=== PATIENT | male | born 1995 | race Caucasian/White ===

== ENCOUNTER 2019-03-12 22:35 | Inpatient (IN) | payer OTHER ==
--- NOTE | 2019-03-12 23:02 | ED ---
Psychiatric Complaint - HPI Summary HPI Summary: The patient is a 23 y/o M presenting to [facility] brought in by [facility] police with a chief complaint of possible bipolar disorder aggravation tonight. Police report that the patient had been sitting in his room looking at the mirror and was aggravated by surrounding noises in nearby rooms; he states, Theres not a lot to look I feel self-contained spending a lot of time in my room. He denies any SI, HI, or auditory or visual hallucinations, although police report that the nurse the patient spoke with said that when proved if he was suicidal, he stated, I guess... maybe. He has not been taking his Valproic acid for bipolar disorder for the last few days as he notes maybe I wasnt listening to myself, Im accepting things as they go. No other PMHx. Current some day smoker, no EtOH, no substance use. Medications and allergies reviewed. - History Of Current Complaint Chief Complaint: EDMentalHealth Time Seen by Provider: 03/12/19 22:49 Hx Obtained From: Patient, Other: - [facility] Police Onset/Duration: Still Present Timing: Constant Severity Initially: Moderate Severity Currently: Moderate Aggravating Factor(s): Medication Non-compliance - not taking Valproic acid Associated Signs And Symptoms: Positive: Social Isolation. Negative: Hallucinating Related History: Positive For: Prior Psychiatric Issues - bipolar disorder Has Suicidal: Denies: Thoughts Has Homicidal: Denies: Thoughts - Allergies/Home Medications Allergies/Adverse Reactions: Allergies Allergy/AdvReac Type Severity Reaction Status Date / Time No Known Allergies Allergy Verified 03/12/19 22:40 Home Medications: Home Medications Divalproex TAB(*) [Depakote (*)] 1,000 mg PO BID 03/12/19 [History Confirmed 03/12/19] PMH/Surg Hx/FS Hx/Imm Hx Endocrine/Hematology History: Denies: Hx Diabetes Respiratory History: Denies: Hx Asthma Psychiatric History: Reports: Hx Bipolar Disorder - Surgical History Surgical History: None Surgery Procedure, Year, and Place: none Infectious Disease History: No Infectious Disease History: Denies: Traveled Outside the [place] in Last 30 Days - Family History Known Family History: Negative: Renal Disease - Social History Alcohol Use: None Hx Substance Use: No Substance Use Type: Reports: None Hx Tobacco Use: Yes Smoking Status (MU): Current Some Day Smoker Review of Systems Positive: Other - Negative: visual hallucinations Positive: Other - Negative: auditory hallucinations Psychological: Other - Negative: SI, HI All Other Systems Reviewed And Are Negative: Yes Physical Exam - Summary Physical Exam Summary: Appearance: Well-appearing, Well-nourished, lying in bed comfortable Skin: Warm, dry, no obvious rash Eyes: sclera anicteric, no conjunctival pallor ENT: mucous membranes moist Neck: deferred Respiratory: No signs of respiratory distress Cardiovascular: Appears well perfused, pulses are nml Abdomen: deferred Musculoskeletal: Moving all 4 extremities without obvious discomfort Neurological: Awake and alert, mentation is normal, speech is fluent and appropriate Psychiatric: affect is non-depressed, responses to questions are quite delayed but appropriate Triage Information Reviewed: Yes Vital Signs On Initial Exam: Initial Vitals Temp Pulse Resp BP Pulse Ox 98.0 F 79 16 155/99 98 03/12/19 22:36 03/12/19 22:36 03/12/19 22:36 03/12/19 22:36 03/12/19 22:36 Vital Signs Reviewed: Yes Diagnostics - Vital Signs Vital Signs Temp Pulse Resp BP Pulse Ox 03/12/19 22:36 98.0 F 79 16 155/99 98 - Laboratory Result Diagrams: 03/12/19 23:05 03/12/19 23:05 Lab Statement: Any lab studies that have been ordered have been reviewed, and results considered in the medical decision making process. Re-Evaluation - Re-Evaluation First Eval Re-Evaluation Time: 22:55 Comment: Patient is medically cleared for MHE. Course/Dx - Course Course Of Treatment: Patient is a 23 y/o M brought in by [facility] police with cc of concern for medication non-compliance of Valproic acid for bipolar disorder with associated symptoms of social isolation but without any auditory or visual hallucinations. Upon physical exam, the patient exhibits a non-depressed affect and responds to questions in a delayed yet appropriate manner. Toxicology report reveals Valproic acid of 15.0. In the ED course, the patient was administered Ativan. He is cleared for MHE at 2255. At 0150, Clyde Richardson, mental health carton stenciler, reports that Dr. Dykes, psychiatry, has decided to involuntarily admit the patient on an emergent basis with dx of unspecified psychosis. - Differential Dx/Clinical Impression Provider Diagnosis: Unspecified psychosis - Physician Notifications Discussed Care Of Patient With: Clyde Richardson - mental health carton stenciler Time Discussed With Above Provider: 01:50 Instructed by Provider To: Other - Clyde reports that Dr. Dykes, psychiatry, is involuntarily admitting the patient on an emergent basis with dx of unspecified psychosis. Discharge ED - Sign-Out/Discharge Documenting (check all that apply): Patient Departure - Patient involuntarily admitted by Dr. Dykes. Patient Received Moderate/Deep Sedation with Procedure: No - Discharge Plan Condition: Stable Disposition: PSYCHIATRIC FACILITY-[facility] - Billing Disposition and Condition Condition: STABLE Disposition: Psychiatric Facility [facility] - Attestation Statements Document Initiated by Scribe: Yes Documenting Scribe: Yara Hinson Provider For Whom Celi is Documenting (Include Credential): Dr. Judah Loredo MD Scribe Attestation: Yara Quinn scribed for Dr. Judah Loredo MD on 03/13/19 at 0543. Scribe Documentation Reviewed: Yes Provider Attestation: The documentation as recorded by the Yara segura accurately reflects the service I personally performed and the decisions made by me, Dr. Judah Loredo MD Status of Scribe Document: Viewed
[2019-03-12] MEDS ORDERED: LORazepam TAB(*) 1 MG PO ONE (23:19)
[2019-03-12 23:26] LABS: ABS Lymphocytes 2.3 10^3/ul (1.0-4.8); ABS Monocytes 0.6 10^3/ul (0-0.8); ABS Neutrophils 5.1 10^3/ul (1.5-7.7); Eosinophil % 0.2 %; Hematocrit 44 % (42-52); Hemoglobin 14.9 g/dL (14.0-18.0); Lymphocyte % 28.3 %; Mean Corpuscular HGB Conc 34 g/dL (31-36); Mean Corpuscular Hemoglobin 32 pg (27-31); Mean Corpuscular Volume 94 fL (80-94); Mean Platelet Volume 7.8 fL (7.4-10.4); Nucleated Red Blood Cells % 0.1; Platelet Count 315 10^3/uL (150-450); Red Blood Count 4.64 10^6 /uL (4.18-5.48); Red Cell Distribution Width 12 % (10-15); White Blood Count 8.1 10^3/uL (3.5-10.8)
[2019-03-12 23:42] LABS: ALT 13 U/L (7-52); AST 17 U/L (13-39); Albumin 5.1 g/dL (3.2-5.2); Alkaline Phosphatase 50 U/L (34-104); Anion Gap 10 mmol/L (2-11); BUN/Creatinine Ratio 24.2 (8-20); Blood Urea Nitrogen 23 mg/dL (6-24); CO2 Carbon Dioxide 23 mmol/L (22-32); Calcium 9.8 mg/dL (8.6-10.3); Chloride 104 mmol/L (101-111); EGFR African American 118.9 (>60); EGFR Non-African American 98.2 (>60); Globulin 2.6 g/dL (2-4); Glucose 83 mg/dL (70-100); Potassium 3.7 mmol/L (3.5-5.0); Sodium 137 mmol/L (135-145); Total Protein 7.7 g/dL (6.4-8.9)
[2019-03-12 23:59] LABS: Acetaminophen < 15 mcg/mL; Alcohol < 10 mg/dL (<10); Salicylate < 2.50 mg/dL (<30)
[2019-03-13 00:14] LABS: TSH (Thyroid Stimulating Horm) 2.12 mcIU/mL (0.34-5.60)
[2019-03-13] MEDS ORDERED: Al Hydrox/Mg Hydrox/Simet LIQ* 30 ML UDC PO PRN (02:12)
[2019-03-13] MEDS ORDERED: Acetaminophen TAB* 325 MG PO PRN (02:12)
[2019-03-13] MEDS: Multivitamins/Minerals TAB PO SCH (11:02)
[2019-03-13] MEDS ORDERED: LORazepam TAB(*) 1 MG ONE (13:13)
[2019-03-13] MEDS: LORazepam TAB(*) 1 MG PO SCH (17:40)
--- NOTE | 2019-03-13 22:24 | HP ---
HISTORY AND PHYSICAL: DATE OF ADMISSION: IDENTIFYING DATA: Mati is a 23-year-old single male, a senior at , was brought to the emergency room by campus police for confusional state and telling the police that he was being annoye d by the surrounding. CHIEF COMPLAINT: "Confusion and inability to express self." HISTORY OF PRESENT ILLNESS: Mati is an unreliable and poor historian. During the interview today, he starts a sentence and then stops and stares at or stares away and do not respond to further quest ions or even if he does sometimes inappropriately. However, he was able to report that he has not be en taking his Depakote but did not know for how long and he was feeling weird for which he called the campus police for help. With direct questioning about signs and symptoms, he was not able to answer yes or no, just stares. However, at that point his mother showed up and was able to provide some me aningful history, although she says she does not know much about his mental health problem. She repo rted that Mati was diagnosed to have bipolar disorder and was prescribed Depakote. She also report s that he may have 2 hospitalizations, 1 overseas in [facility], the other in the [facility] with almost identical presentation. However, other than significant muteness and inability to verba lize his thoughts and feelings, he did not show any manic or hypomanic symptoms. He denies experienc ing any hallucinations or delusions. He also denies taking any illicit substances or drinking. He d enies experiencing thoughts of harming self or others. Reportedly, he did not sleep for an unknown n umber of days including last night and he ate approximately 20% of the meals since he was on the unit . He stands at a corner and appears to be internally occupied. His mother reports that he may have been under a lot of stress at the school, although his grades are very good, possibly 4 point GPA. PAST PSYCHIATRIC HISTORY: Reportedly at least a couple of hospitalizations. He has a psychiatrist u nknown to anybody at this point, who prescribes him Depakote. PAST MEDICAL HISTORY: Unremarkable. ALLERGIES: No known drug allergies. FAMILY PSYCHIATRIC HISTORY: It is remarkable for his mother having bipolar disorder diagnosis and st able on Depakote and Wellbutrin, reported by herself. PERSONAL AND SOCIAL HISTORY: Mati is a senior at [employer] with good grades. He is from [facility]. Nothing more is known about his personal and social history. PHYSICAL EXAMINATION Physical exam was offered. At first, he was uncomfortable, but later allowed some exam. As marley britt earlier, he does not appear to be in any physical distress other than holding his abdomen and sayin g that he was having some cramps. GENERAL: He is not in any physical distress at this time. VITAL SIGNS: Show a blood pressure of 155/99, pulse 79, respirations 16, pulse ox 98% on room air. HEENT: Examination of head was unremarkable. Head was atraumatic, normocephalic. Eyes, PERRLA, EOMI x2, clear sclerae bilaterally. ENT: Moist oral cavity, good dentition with poor hygiene. NECK: Supple with midline trachea. No lymphadenopathy, thyromegaly, or other abnormalities. LUNGS: Clear with good air entry bilaterally. No wheezing or crepitation. CARDIOVASCULAR: Within normal limits with S1 and S2 only. No murmurs or gallops appreciated. ABDOMEN: Complaining of some tenderness in mid abdomen and epigastric area, otherwise unremarkable. MUSCULOSKELETAL: Within normal limits. NEUROLOGICAL: Unremarkable with cranial nerves II through XII grossly intact. No sensory deficits a ppreciated. MENTAL STATUS EXAMINATION: He is alert, but disoriented to time, place, and person, has intense sta ring. Speech is mostly mute and limited, unable to say how his mood is; however, observed affect tray ears to be anxious. Thought process is unable to assess at this time. Thought content also difficul t to assess; however, he denies any delusions or paranoia. Also, denies any perceptional disturbance s at this time. Unable to assess his intelligence but evidently it is average because of his educati onal background and grade point average in his senior class. Memory function is probably intact, but at this time, difficult to assess. His insight and judgment are both impaired. LABORATORY DATA: Lab reviewed was unremarkable with a WBC count of 8.1, hemoglobin 14.9, hematocrit 44, platelets 315. Sodium 137, potassium 3.7, chloride 104, carbon dioxide 23, BUN 23, creatinine 0. 95. Urinalysis and urine drug screen were unremarkable. SUMMARY: This 23-year-old [employer] senior, with a prior history of treatments and at least 2 p sychiatric hospitalizations, appears to be in a state of catatonia at this time. DIAGNOSTIC IMPRESSION: Bipolar I disorder with catatonia. PHYSICAL HEALTH DIAGNOSIS: None. TREATMENT RECOMMENDATIONS: Mati will remain hospitalized on behavioral science unit for his safety and rapid stabilization of catatonia. His code status will remain full. Supportive milieu, individ ual, and group therapy will be initiated. I have discussed the treatment plan with his mother in Louis stuart's presence. Both appear to understand and agree to the plan. For now, I will prescribe lorazepam 1 mg 3 times a day, 30 minutes prior to meal preferably and monitoring him for next 48 hours to see how things go and then eventually probably start him back on his Depakote. [id number]/[facility] #: [id number]
[2019-03-14] MEDS: LORazepam TAB(*) 1 MG PO SCH ×3 (07:59→17:00)
[2019-03-14] MEDS: Multivitamins/Minerals TAB PO SCH (08:04)
[2019-03-14 08:30] LABS: HDL Cholesterol 50.6 mg/dL
[2019-03-15] MEDS: LORazepam TAB(*) 1 MG PO SCH ×4 (07:54→18:10)
[2019-03-15] MEDS: Multivitamins/Minerals TAB PO SCH (08:13)
[2019-03-15] MEDS: Divalproex DR TAB(*) 500 MG PO SCH ×3 (13:05→21:37)
--- NOTE | 2019-03-15 16:52 | PN ---
Subjective - Subjective Date of Service: 03/15/19 Service Type: 61708 Hosp care 25 min moderate complexity Subjective: Met with Mati and his mother multiple times to discuss his treatment options. Today received a call from his psychiatrist at [facility] who reports that Mati was on zyprexa for psychosis. However, he is catatonic in presentation for which Lorazepam was prescribed. He has shown minimal improvement so far. Was also started on Depakote today. During today's assessment Mati reported that he heard voices in the past. Denies experiencing hallucinations or delusions now. Objective - General Observations Appearance: Disheveled Appears Stated Age: Yes Stature: WNL Posture: WNL Eye Contact: Intense Behavior/Activity: Slowed - Interaction Observations Attitude Towards Examiner: Cooperative Attitude Towards Parent/Guardian: Positive Interaction Stated Mood: Dysphoric Affect: Blunted Speech Pattern/Tone: Delayed, Quiet Volume Thought Process: Incoherent, Impoverished Perception: WNL Thought Content: Depressive Hallucination Type: Denies Delusion Type: Denies - Cognitive Function Orientation: Person, Situation Level of Consciousness: Awake, Alert Cognition: Impaired Cognition Estimated Intelligence: Normal Judgment Within Normal Limits: No Ability to Make Reasonable Decisions: Moderately Impaired - Medication Compliance Cooperative with Inpatient Medication Regimen: Yes - Group Participation Participates in Group Activities: No Assessment - Assessment Merits Inpatient Hospitalization: For Immediate Safety, For Stabilization Clinical Impression: Catatonic. Plan - Plan Treatment Plan: Name: MATI JORGENSEN Birthdate: 1995 [id number] Continued Medication Management: Start Medication Medications: Current Medications Acetaminophen (Tylenol Tab*) 650 mg PO Q4H PRN PRN Reason: PAIN; OR TEMP > 101 Al Hydrox/Mg Hydrox/Simethicone (Maalox Plus*) 30 ml PO Q4H PRN PRN Reason: INDIGESTION Divalproex Sodium (Depakote Dr Tab(*)) 500 mg PO BID [facility] Last Admin: 03/15/19 13:05 Dose: 500 mg Lorazepam (Ativan Tab(*)) 2 mg PO TID AC [facility] Last Admin: 03/15/19 13:05 Dose: 2 mg Multivitamins/Minerals (Theragran/Minerals Tab*) 1 tab PO DAILY [facility] Last Admin: 03/15/19 08:13 Dose: 1 tab - Discharge Plan Discharge Plan: Outpatient Follow Up Outpatient Program: TBD
[2019-03-16] MEDS: LORazepam TAB(*) 1 MG PO SCH ×3 (10:48→17:43)
[2019-03-16] MEDS: Multivitamins/Minerals TAB PO SCH (10:48)
[2019-03-16] MEDS: Divalproex DR TAB(*) 500 MG PO SCH ×2 (10:48→21:41)
--- NOTE | 2019-03-16 10:50 | PN ---
Subjective - Subjective Date of Service: 03/16/19 Service Type: 68532 Hosp care 35 min high complexity Subjective: Nursing Report: Patient was visible on unit, no behavioral incidents. CC: "I dont know Patient was seen and evaluated in the common room. The patient seems confused and vague when answering questions. He verbalized that he is okay with taking a medical leave of absence from school. His mother visited him today. According to his outpatient psychiatrist he was at a [employer] retreat and started to de- compensate. Objective - General Observations Appearance: Disheveled Appears Stated Age: Yes Stature: Thin Posture: Slumped Eye Contact: Avoidant Behavior/Activity: WNL - Interaction Observations Attitude Towards Examiner: Cooperative Stated Mood: Dysphoric Speech Pattern/Tone: Delayed Thought Process: Loose Associations Perception: Depersonalization Thought Content: Self-Deprecatory Hallucination Type: None - Cognitive Function Orientation: A&O x 4 Level of Consciousness: Awake Ability to Make Reasonable Decisions: Serverely Impaired - Medication Compliance Cooperative with Inpatient Medication Regimen: Yes - Group Participation Participates in Group Activities: Partial Assessment - Assessment Merits Inpatient Hospitalization: For Immediate Safety Clinical Impression: 23 year old male with history of Bipolar I disorder came to the hospital with signs of catatonia and psychosis and was admitted to the B[facility] at [facility]. Plan - Plan Treatment Plan: Name: DORIS JORGENSNE Birthdate: 1995 [id number] #Q15 minute observation. # The patient requires psychiatric inpatient admission at this time to assure safety, receive treatment and work toward stabilization. # Patient shows signs of catatonia and psychosis # Obtained collateral information from Dr. Munson his treating psychiatrist [phone] # Collaboration with Strategic Partner Development Manager Quin Paz # Continue Ativan 2mg TID for catatonia # Resume zyprexa 10mg qhs and monitor for response to catatonia # Continue depakote 500mg BID # Depakote level 15 #Goals before discharge include: Psychiatric stabilization Tentative Discharge: Pending psychiatric stabilization Sodium 137 mmol/L (135-145) 03/12/19 23:05 Potassium 3.7 mmol/L (3.5-5.0) 03/12/19 23:05 BUN 23 mg/dL (6-24) 03/12/19 23:05 Creatinine 0.95 mg/dL (0.67-1.17) 03/12/19 23:05 Hemoglobin A1c 4.8 % (4.0-5.6) 03/14/19 08:00 Calcium 9.8 mg/dL (8.6-10.3) 03/12/19 23:05 AST 17 U/L (13-39) 03/12/19 23:05 ALT 13 U/L (7-52) 03/12/19 23:05 Triglycerides 59 mg/dL 03/14/19 08:00 Cholesterol 126 mg/dL 03/14/19 08:00 LDL Cholesterol 64 mg/dL 03/14/19 08:00 Continued Medication Management: Continue Outpt Medication Medications: Current Medications Acetaminophen (Tylenol Tab*) 650 mg PO Q4H PRN PRN Reason: PAIN; OR TEMP > 101 Al Hydrox/Mg Hydrox/Simethicone (Maalox Plus*) 30 ml PO Q4H PRN PRN Reason: INDIGESTION Divalproex Sodium (Depakote Dr Tab(*)) 500 mg PO BID [facility] Last Admin: 03/16/19 10:48 Dose: 500 mg Lorazepam (Ativan Tab(*)) 2 mg PO TID AC [facility] Last Admin: 03/16/19 10:48 Dose: 2 mg Multivitamins/Minerals (Theragran/Minerals Tab*) 1 tab PO DAILY [facility] Last Admin: 03/16/19 10:48 Dose: Not Given - Discharge Plan Discharge Plan: Inpatient Hospitalization
[2019-03-16] MEDS ORDERED: OLANzapine TAB* 10 MG PO SCH (21:00)
--- NOTE | 2019-03-17 10:38 | PN ---
Subjective - Subjective Date of Service: 03/17/19 Service Type: 69152 Hosp care 35 min high complexity Subjective: Nursing Report: Patient was visible on unit, no behavioral incidents. Refused medications. CC: "I dont know" Patient was seen and evaluated in the common room. The patient reported that no one offered him medications. When asked questions he responds saying " maybe ". Patient ate his meals. Per nursing no behavioral issues or overnight events reported. Objective - General Observations Appearance: Disheveled Appears Stated Age: Yes Stature: Thin Posture: Slumped Eye Contact: Avoidant Behavior/Activity: Slowed - Interaction Observations Attitude Towards Examiner: Confused Stated Mood: Dysphoric Affect: Flat Speech Pattern/Tone: Delayed Thought Process: Impoverished Perception: Derealization Thought Content: Depressive Hallucination Type: Auditory Delusion Type: Thought Withdrawal - Cognitive Function Orientation: A&O x 4 Level of Consciousness: Awake Judgment Within Normal Limits: No Ability to Make Reasonable Decisions: Serverely Impaired - Medication Compliance Cooperative with Inpatient Medication Regimen: Partial - Group Participation Participates in Group Activities: No Assessment - Assessment Merits Inpatient Hospitalization: For Immediate Safety Clinical Impression: 23 year old male with history of Bipolar I disorder came to the hospital with signs of catatonia and psychosis and was admitted to the BSU at [facility]. Plan - Plan Treatment Plan: Name: DORIS JORGENSEN Birthdate: 1995 [id number] #Q15 minute observation. # The patient requires psychiatric inpatient admission at this time to assure safety, receive treatment and work toward stabilization. # Patient shows signs of catatonia and psychosis # Obtained collateral information from Dr. Munson his treating psychiatrist [phone] # Collaboration with Health And Safety Trainer Quin Paz # Continue Ativan 2mg TID for catatonia # Meeting with mother today. Once patient is stabilized the patient will return with her and enroll in intensive outpatient program. # Medical leave paperwork completed. # Seroquel 200mg @1900 and plan to monitor for response to catatonia # Mother plans to encourge patient to take medication during visiting hours # Depakote 1000mg @ 1900 # Depakote level 15 on admisison #Goals before discharge include: Psychiatric stabilization Tentative Discharge: Pending psychiatric stabilization Sodium 137 mmol/L (135-145) 03/12/19 23:05 Potassium 3.7 mmol/L (3.5-5.0) 03/12/19 23:05 BUN 23 mg/dL (6-24) 03/12/19 23:05 Creatinine 0.95 mg/dL (0.67-1.17) 03/12/19 23:05 Hemoglobin A1c 4.8 % (4.0-5.6) 03/14/19 08:00 Calcium 9.8 mg/dL (8.6-10.3) 03/12/19 23:05 AST 17 U/L (13-39) 03/12/19 23:05 ALT 13 U/L (7-52) 03/12/19 23:05 Triglycerides 59 mg/dL 03/14/19 08:00 Cholesterol 126 mg/dL 03/14/19 08:00 LDL Cholesterol 64 mg/dL 03/14/19 08:00 Continued Medication Management: Continue Outpt Medication Medications: Current Medications Acetaminophen (Tylenol Tab*) 650 mg PO Q4H PRN PRN Reason: PAIN; OR TEMP > 101 Al Hydrox/Mg Hydrox/Simethicone (Maalox Plus*) 30 ml PO Q4H PRN PRN Reason: INDIGESTION Divalproex Sodium (Depakote Dr Tab(*)) 500 mg PO BID [facility] Last Admin: 03/16/19 21:41 Dose: Not Given Lorazepam (Ativan Tab(*)) 2 mg PO TID [facility] Last Admin: 03/16/19 17:43 Dose: 2 mg Multivitamins/Minerals (Theragran/Minerals Tab*) 1 tab PO DAILY [facility] Last Admin: 03/16/19 10:48 Dose: Not Given Olanzapine (Zyprexa Tab*) 10 mg PO BEDTIME [facility] Last Admin: 03/16/19 21:41 Dose: Not Given - Discharge Plan Discharge Plan: Inpatient Hospitalization
[2019-03-17] MEDS: Multivitamins/Minerals TAB PO SCH (10:48)
[2019-03-17] MEDS: LORazepam TAB(*) 1 MG PO SCH ×3 (10:48→17:44)
[2019-03-17] MEDS: Divalproex DR TAB(*) 500 MG PO SCH ×2 (10:48→19:07)
[2019-03-17] MEDS ORDERED: QUEtiapine XR TAB* 200 MG PO SCH (19:00)
[2019-03-17] MEDS ORDERED: OLANzapine TAB*ODT* 10 MG TAB PO SCH (19:00)
[2019-03-18] MEDS: Multivitamins/Minerals TAB PO SCH (10:19)
[2019-03-18] MEDS: LORazepam TAB(*) 1 MG PO SCH ×3 (10:20→18:30)
--- NOTE | 2019-03-18 11:24 | PN ---
Subjective - Subjective Date of Service: 03/18/19 Service Type: 35815 Hosp care 35 min high complexity Subjective: Nursing Report: Patient was visible on unit, no behavioral incidents. Slept overnight. He is compliant with medication. CC: "It can go either way" Patient was seen and evaluated in the common room. He spoke with vague responses but appeared to be more alert. He reported having adequate appetite and sleep. Per nursing no behavioral issues or overnight events reported. Patient reported that he is tolerating medications without side effects. Objective - General Observations Appearance: Disheveled Appears Stated Age: Yes Stature: WNL Posture: WNL Eye Contact: Average Behavior/Activity: WNL - Interaction Observations Attitude Towards Examiner: Cooperative Stated Mood: Dysphoric Speech Pattern/Tone: Quiet Volume Thought Process: Impoverished Perception: WNL Thought Content: Depressive Thought Process: Lethality: Paranoid Ideation Hallucination Type: Auditory Delusion Type: Thought Withdrawal - Cognitive Function Orientation: A&O x 4 Level of Consciousness: Awake - Medication Compliance Cooperative with Inpatient Medication Regimen: Yes - Group Participation Participates in Group Activities: Partial Assessment - Assessment Merits Inpatient Hospitalization: For Immediate Safety Clinical Impression: 23 year old male with history of Bipolar I disorder came to the hospital with signs of catatonia and psychosis and was admitted to the BSU at [facility]. Plan - Plan Treatment Plan: Name: DORIS JORGENSEN Birthdate: 1995 [id number] #Q30 minute observation with staff pass . # The patient requires psychiatric inpatient admission at this time to assure safety, receive treatment and work toward stabilization. # Patient shows signs of catatonia and psychosis # Obtained collateral information from Dr. Munson his treating psychiatrist # Collaboration with Animal Husbandry Professor Quin Paz # Continue Ativan 2mg TID for catatonia # Meeting with mother today. Once patient is stabilized the patient will return with her and enroll in intensive outpatient program. # Medical leave paperwork completed. # Seroquel 200mg @1900 and plan to monitor for response to catatonia # Mother plans to encourge patient to take medication during visiting hours # Depakote 1000mg @ 1900 # Depakote level 15 on admisison # Will hold off on starting long acting anti-psychotic injection given his recent episode of catatonia. #Goals before discharge include: Psychiatric stabilization Tentative Discharge: Pending psychiatric stabilization Sodium 137 mmol/L (135-145) 03/12/19 23:05 Potassium 3.7 mmol/L (3.5-5.0) 03/12/19 23:05 BUN 23 mg/dL (6-24) 03/12/19 23:05 Creatinine 0.95 mg/dL (0.67-1.17) 03/12/19 23:05 Hemoglobin A1c 4.8 % (4.0-5.6) 03/14/19 08:00 Calcium 9.8 mg/dL (8.6-10.3) 03/12/19 23:05 AST 17 U/L (13-39) 03/12/19 23:05 ALT 13 U/L (7-52) 03/12/19 23:05 Triglycerides 59 mg/dL 03/14/19 08:00 Cholesterol 126 mg/dL 03/14/19 08:00 LDL Cholesterol 64 mg/dL 03/14/19 08:00 Continued Medication Management: Continue Outpt Medication Medications: Current Medications Acetaminophen (Tylenol Tab*) 650 mg PO Q4H PRN PRN Reason: PAIN; OR TEMP > 101 Al Hydrox/Mg Hydrox/Simethicone (Maalox Plus*) 30 ml PO Q4H PRN PRN Reason: INDIGESTION Divalproex Sodium (Depakote Dr Tab(*)) 1,000 mg PO 1900 [facility] Last Admin: 03/17/19 19:07 Dose: 1,000 mg Lorazepam (Ativan Tab(*)) 2 mg PO TID AC [facility] Last Admin: 03/18/19 10:20 Dose: 2 mg Multivitamins/Minerals (Theragran/Minerals Tab*) 1 tab PO DAILY [facility] Last Admin: 03/18/19 10:19 Dose: 1 tab Quetiapine Fumarate (Seroquel Xr Tab*) 200 mg PO 1900 [facility] Last Admin: 03/17/19 19:07 Dose: 200 mg - Discharge Plan Discharge Plan: Inpatient Hospitalization
[2019-03-18] MEDS: Divalproex DR TAB(*) 500 MG PO SCH (20:24)
[2019-03-18] MEDS: QUEtiapine XR TAB* 300 MG PO SCH (20:24)
[2019-03-19] MEDS: Multivitamins/Minerals TAB PO SCH (09:55)
[2019-03-19] MEDS: LORazepam TAB(*) 1 MG PO SCH ×2 (09:55→12:29)
--- NOTE | 2019-03-19 12:23 | PN ---
Subjective - Subjective Date of Service: 03/19/19 Service Type: 70680 Hosp care 35 min high complexity Subjective: Nursing Report: Patient was visible on unit, no behavioral incidents. Slept overnight. He is attending group activities. CC: "Fine" Patient reported feeling tired today. He reported seeing double yesterday afternoon. Patient was seen and evaluated in the common room. He reported having adequate appetite and sleep. The patient reports attending and participating in day groups. Per nursing no behavioral issues or overnight events reported. Patient reported that he is tolerating medications. Objective - General Observations Appearance: Disheveled Appears Stated Age: Yes Stature: WNL Posture: WNL Eye Contact: Intense Behavior/Activity: WNL - Interaction Observations Attitude Towards Examiner: Cooperative Stated Mood: Dysphoric Affect: Restricted Speech Pattern/Tone: Slurred Thought Process: Coherent Perception: Derealization Thought Content: Preoccupation/Ruminations Hallucination Type: None Delusion Type: None - Cognitive Function Orientation: A&O x 4 Level of Consciousness: Awake - Medication Compliance Cooperative with Inpatient Medication Regimen: Yes - Group Participation Participates in Group Activities: Partial Assessment - Assessment Merits Inpatient Hospitalization: For Immediate Safety Clinical Impression: 23 year old male with history of Bipolar I disorder came to the hospital with signs of catatonia and psychosis and was admitted to the BSU at [facility]. Plan - Plan Treatment Plan: Name: DORIS JORGENSEN Birthdate: 1995 [id number] #Q30 minute observation with staff pass . Patient more lucid and linear goal directed thought process. Encouraged strict social rhythm. # The patient requires psychiatric inpatient admission at this time to assure safety, receive treatment and work toward stabilization. # Patient shows signs of catatonia and psychosis # Obtained collateral information from Dr. Munson his treating psychiatrist # Collaboration with Plumbing Inspector Quin Paz # Taper down Ativan 2mg BID, 2mg qhs Friday and 1mg qhs on Friday. # Once patient is stabilized the patient will return with her and enroll in intensive program in [facility]. # Medical leave paperwork completed. # Seroquel 300mg @1900 and plan to monitor for response to catatonia # Depakote 1000mg @ 1900 # Depakote level 15 on admisison # Will hold off on starting long acting anti-psychotic injection given his recent episode of catatonia. #Goals before discharge include: Psychiatric stabilization Tentative Discharge: Pending psychiatric stabilization Sodium 137 mmol/L (135-145) 03/12/19 23:05 Potassium 3.7 mmol/L (3.5-5.0) 03/12/19 23:05 BUN 23 mg/dL (6-24) 03/12/19 23:05 Creatinine 0.95 mg/dL (0.67-1.17) 03/12/19 23:05 Hemoglobin A1c 4.8 % (4.0-5.6) 03/14/19 08:00 Calcium 9.8 mg/dL (8.6-10.3) 03/12/19 23:05 AST 17 U/L (13-39) 03/12/19 23:05 ALT 13 U/L (7-52) 03/12/19 23:05 Triglycerides 59 mg/dL 03/14/19 08:00 Cholesterol 126 mg/dL 03/14/19 08:00 LDL Cholesterol 64 mg/dL 03/14/19 08:00 Continued Medication Management: Continue Outpt Medication Medications: Current Medications Acetaminophen (Tylenol Tab*) 650 mg PO Q4H PRN PRN Reason: PAIN; OR TEMP > 101 Al Hydrox/Mg Hydrox/Simethicone (Maalox Plus*) 30 ml PO Q4H PRN PRN Reason: INDIGESTION Divalproex Sodium (Depakote Dr Tab(*)) 1,000 mg PO 1900 [facility] Last Admin: 03/18/19 20:24 Dose: 1,000 mg Lorazepam (Ativan Tab(*)) 2 mg PO TID [facility] Last Admin: 03/19/19 09:55 Dose: 2 mg Multivitamins/Minerals (Theragran/Minerals Tab*) 1 tab PO DAILY [facility] Last Admin: 03/19/19 09:55 Dose: 1 tab Quetiapine Fumarate (Seroquel Xr Tab*) 300 mg PO 1900 [facility] Last Admin: 03/18/19 20:24 Dose: 300 mg - Discharge Plan Discharge Plan: Inpatient Hospitalization
[2019-03-19] MEDS ORDERED: LORazepam TAB(*) 1 MG PO PRN (13:53)
[2019-03-19] MEDS ORDERED: LORazepam TAB(*) 1 MG PO SCH ×2 (19:00→21:00)
[2019-03-19] MEDS: QUEtiapine XR TAB* 300 MG PO SCH (19:03)
[2019-03-19] MEDS: Divalproex DR TAB(*) 500 MG PO SCH (19:03)
[2019-03-20] MEDS: Multivitamins/Minerals TAB PO SCH (11:38)
[2019-03-20] MEDS: Divalproex DR TAB(*) 500 MG PO SCH (18:55)
[2019-03-20] MEDS: QUEtiapine XR TAB* 300 MG PO SCH (18:55)
[2019-03-20] MEDS ORDERED: LORazepam TAB(*) 0.5 MG PO ONE (19:00)
[2019-03-21 11:15] VITALS: BP 139/81
[2019-03-21] MEDS: Multivitamins/Minerals TAB PO SCH (13:51)
[2019-03-21] MEDS ORDERED: LORazepam TAB(*) 1 MG PO ONE (19:00)
[2019-03-21] MEDS: QUEtiapine XR TAB* 300 MG PO SCH (20:06)
[2019-03-21] MEDS: Divalproex DR TAB(*) 500 MG PO SCH (20:06)
--- NOTE | 2019-03-22 08:19 | DS ---
Subjective - Subjective Service Types: 12822 [facility] Day Mgmt complex over 30 min Discharge Date: 03/22/19 Subjective: CC: " I am better" Patient looks forward to eventually returning back to school. The patient asked about his diagnosis and what caused him to be in a different state of mind The patient was seen and evaluated before discharge today. The patient reported having adequate appetite and sleep. The patient reports attending and participating in day groups. Per nursing no behavioral issues or overnight events reported. Patient reported tolerating medications without side effects. IDENTIFYING DATA: Mati is a 23-year-old single male, a senior at , was brought to the emergency room by [place] police for confusional state and telling the police that he was being annoyed by the surrounding. CHIEF COMPLAINT: "Confusion and inability to express self." HISTORY OF PRESENT ILLNESS: Mati is an unreliable and poor historian. During the interview today, he starts a sentence and then stops and stares at or stares away and do not respond to further questions or even if he does sometimes inappropriately. However, he was able to report that he has not been taking his Depakote but did not know for how long and he was feeling weird for which he called the [place] police for help. With direct questioning about signs and symptoms, he was not able to answer yes or no, just stares. However, at that point his mother showed up and was able to provide some meaningful history, although she says she does not know much about his mental health problem. She reported that Mati was diagnosed to have bipolar disorder and was prescribed Depakote. She also reports that he may have 2 hospitalizations, 1 overseas in [facility], the other in the [facility] with almost identical presentation. However, other than significant muteness and inability to verbalize his thoughts and feelings, he did not show any manic or hypomanic symptoms. He denies experiencing any hallucinations or delusions. He also denies taking any illicit substances or drinking. He denies experiencing thoughts of harming self or others. Reportedly, he did not sleep for an unknown number of days including last night and he ate approximately 20% of the meals since he was on the unit. He stands at a corner and appears to be internally occupied. His mother reports that he may have been under a lot of stress at the school, although his grades are very good, possibly 4 point GPA. PAST PSYCHIATRIC HISTORY: Reportedly at least a couple of hospitalizations. He has a psychiatrist unknown to anybody at this point, who prescribes him Depakote. PAST MEDICAL HISTORY: Unremarkable. ALLERGIES: No known drug allergies. FAMILY PSYCHIATRIC HISTORY: It is remarkable for his mother having bipolar disorder diagnosis and stable on Depakote and Wellbutrin, reported by herself. PERSONAL AND SOCIAL HISTORY: Mati is a senior at [employer] with good grades. He is from [place]. Nothing more is known about his personal and social history. PHYSICAL EXAMINATION Physical exam was offered. At first, he was uncomfortable, but later allowed some exam. As mentioned earlier, he does not appear to be in any physical distress other than holding his abdomen and saying that he was having some cramps. GENERAL: He is not in any physical distress at this time. VITAL SIGNS: Show a blood pressure of 155/99, pulse 79, respirations 16, pulse ox 98% on room air. HEENT: Examination of head was unremarkable. Head was atraumatic, normocephalic. Eyes, PERRLA, EOMI x2, clear sclerae bilaterally. ENT: Moist oral cavity, good dentition with poor hygiene. NECK: Supple with midline trachea. No lymphadenopathy, thyromegaly, or other abnormalities. LUNGS: Clear with good air entry bilaterally. No wheezing or crepitation. CARDIOVASCULAR: Within normal limits with S1 and S2 only. No murmurs or gallops appreciated. ABDOMEN: Complaining of some tenderness in mid abdomen and epigastric area, otherwise unremarkable. MUSCULOSKELETAL: Within normal limits. NEUROLOGICAL: Unremarkable with cranial nerves II through XII grossly intact. No sensory deficits appreciated. MENTAL STATUS EXAMINATION: He is alert, but disoriented to time, place, and person, has intense staring. Speech is mostly mute and limited, unable to say how his mood is; however, observed affect appears to be anxious. Thought process is unable to assess at this time. Thought content also difficult to assess; however, he denies any delusions or paranoia. Also, denies any perceptional disturbances at this time. Unable to assess his intelligence but evidently it is average because of his educational background and grade point average in his senior class. Memory function is probably intact, but at this time, difficult to assess. His insight and judgment are both impaired. LABORATORY DATA: Lab reviewed was unremarkable with a WBC count of 8.1, hemoglobin 14.9, hematocrit 44, platelets 315. Sodium 137, potassium 3.7, chloride 104, carbon dioxide 23, BUN 23, creatinine 0.95. Urinalysis and urine drug screen were unremarkable. SUMMARY: This 23-year-old [employer] senior, with a prior history of treatments and at least 2 psychiatric hospitalizations, appears to be in a state of catatonia at this time. DIAGNOSTIC IMPRESSION: Bipolar I disorder with catatonia. PHYSICAL HEALTH DIAGNOSIS: None. TREATMENT RECOMMENDATIONS: Mati will remain hospitalized on behavioral science unit for his safety and rapid stabilization of catatonia. His code status will remain full. Supportive milieu, individual, and group therapy will be initiated. I have discussed the treatment plan with his mother in Mati's presence. Both appear to understand and agree to the plan. For now, I will prescribe lorazepam 1 mg 3 times a day, 30 minutes prior to meal preferably and monitoring him for next 48 hours to see how things go and then eventually probably start him back on his Depakote. Diagnosis on Discharge: Bipolar I disorder recent depressive episode with catatonia currently in partial remission Condition at the time of discharge: At the time of discharge patient showed improvement of sleep and appetite. The patient was not a danger to self or others. The patient denied suicidal ideation, intent or plan. The patient denied homicidal targets, ideation, intent or plan. This patient participated in psychosocial rehabilitation and gained some insight into problems. The patient gained insight into mental illness, triggers, and treatment. The patient took medication as prescribed. The patient denied side effects of medication and objective signs of side effects were not evident. Therapy Resources were offered to the patient. Patient was given a supply of prescriptions at the time of discharge. The patient plans to attend follow up care with the follow up arrangements that were discussed and put in place. Patient was asked to keep appointments as scheduled, take medication as prescribed, have routine follow up care with their primary care physician and refrain from any use of alcohol or drugs. Objective - General Observations Appearance: Neat Appears Stated Age: Yes Stature: Thin Posture: WNL Eye Contact: Average Behavior/Activity: WNL - Interaction Observations Attitude Towards Examiner: Cooperative Stated Mood: Euthymic Affect: Full Speech Pattern/Tone: Clear Thought Process: Coherent Perception: WNL Thought Content: WNL Hallucination Type: None Delusion Type: None - Cognitive Function Orientation: A&O x 4 Level of Consciousness: Awake - Medication Compliance Cooperative with Inpatient Medication Regimen: Yes - Group Participation Participates in Group Activities: Yes Treatment Course & Assessment Clinical Course & Impression: Hospital course part A: 23 year old male with history of Bipolar I disorder came to the hospital with signs of catatonia and psychosis and was admitted to the BSU at [facility]. Hospital course part B: Labs ordered included CBC, CMP, UDS, TSH, HBA1c, TSH, Toxicology screen, Urine analysis, VA level, and lipid profile. Labs were reviewed and did not require the need for further evaluation. Vital signs were monitored during the course of admission. The patient was admitted to the adult behavioral unit and placed on 15 minute check for safety. At a later time the patient was on Q30 minute observation and staff pass privileges. With those limits being extended, patient was safe on all checks and there were no occurrence of behavioral incidents. The patient did well on the unit and went to groups. Interacted with peers had adequate sleep and regular appetite. Tolerated medication changes without side effects. Group therapy and services were offered. The risks, benefits, and alternative treatment options were discussed as well as of the risks of refusing treatment. Treatment associated risks discussed. After this discussion made an acknowledgement of this understanding. Follow up care appointments were put in place. The importance of monitoring for metabolic changes was discussed and acknowledgement of this understanding was made. The patient was informed not to abruptly stop or start new medications before consulting with a medical professional. Improvements in patient from the time of admission include: Improved affect, sleep and decrease in anxiety. The patient expressed readiness for discharge home. The patient presents with a broader range of affect, and the absence of depressed mood, delusions, perceptual disturbances. The patient denied suicidal and or homicidal ideation intent or plan. Overall, the patient responded well to inpatient treatment as evidenced by their report of strengthening of coping mechanisms, reduced distress, and more positive outlook on circumstances. Of note there was an improvement of recognizing how emotional state can effect mood and behavior. Safety precautions were put in place which included involving the patient and their family to closely monitor for changes in mental state. In addition, implementing follow up care, screening for the need to remove/securing firearms , weapons and stockpile of medications. Patient/ family instructed to immediately call 911 should any safety concerns arise. AIMS was performed and insignificant for involuntary movement disorders. The patient was advised of the 24 hour / 7 days a week availability of the emergency room and to call 911 in the event of an emergency such as being suicidal and/ or homicidal. The patient was informed of the contact information for [facility], Suicide Prevention and Crisis Services, National Suicide Prevention Lifeline, [facility], Alcoholics Anonymous, and [facility]. Valproic acid level was 15 on admission indicated his reason for de- compensating to be medication non compliance. He tolerated medications and was advised about the importance of monitoring medication levels after leaving the hospital. Medications started included seroquel 300mg qhs for sleep and mood, and continued depakote 1000mg qhs for mood stabilization, ativan 2mg TID was tapered down and discontinued after signs of catatonia resolved. Importance of medication compliance and social rhythm was discussed. He plans to take a medical leave from school this semester and go to [facility] for a psychiatric intensive treatment program. Considered anti-psychotic long acting injection but given his recent episode of catatonia this would not be a good choice. Family meeting took place before discharge. The family confirmed that the patient is at their baseline. At this time both the patient and family are eager for discharge and are in agreement with the discharge plan set forth by the treatment team and can safely receive care in the less restrictive outpatient setting. They were advised on how the days following discharge can be a vulnerable period and to look out for warning signs associated with decompensation and progression of mental illness. They were notified of the resources available in the event these situations arise and confirmed that the patient has no access to firearms or stock piles of medications. Patient was not assaultive or a behavioral problem during the course of admission. The patient showed improvement of hygiene and was able to carry out activities of daily living. Patient was more alert was able to have complete sentences and no longer showed latencies in speech response times. Patient will be discharged to live at home. Follow up appointment at Dr. Munson in [facility]. Patient informed of follow up appointment times. See more details for follow up care in the discharge plan. Risk factors were mitigated by establishing the patients baseline with close contacts and arranging a family meeting. Implementing precautionary safety measures by confirming no stockpiles of medications and no access to firearms , providing mental health treatment, stabilization of depressive and catatonic features, arrangement of outpatient continuation of care, as well as provided a supportive care environment and therapy resources during the course of hospitalization. Risk factors: , single, history of mental illness. Protective factors: Currently no suicidal ideation, intent or plan. No prior suicide attempts Has social/ family support system. No history of service. Currently no feelings of hopelessness, not in an occupation of social isolation, doesnt have multiple medical conditions, no family history of suicide, doesnt have access to firearms. Doesnt have command hallucinations and or psychotic features at this time. No current substance abuse. No current alcohol abuse. Not an anniversary of a loss of a loved one. No changes in relationship status , housing, job. Currently future orientated. Patient engaged in treatment and compliant with medication. Sodium 137 mmol/L (135-145) 03/12/19 23:05 Potassium 3.7 mmol/L (3.5-5.0) 03/12/19 23:05 BUN 23 mg/dL (6-24) 03/12/19 23:05 Creatinine 0.95 mg/dL (0.67-1.17) 03/12/19 23:05 Hemoglobin A1c 4.8 % (4.0-5.6) 03/14/19 08:00 Calcium 9.8 mg/dL (8.6-10.3) 03/12/19 23:05 AST 17 U/L (13-39) 03/12/19 23:05 ALT 13 U/L (7-52) 03/12/19 23:05 Triglycerides 59 mg/dL 03/14/19 08:00 Cholesterol 126 mg/dL 03/14/19 08:00 LDL Cholesterol 64 mg/dL 03/14/19 08:00 Vital Signs Temp Pulse Resp BP Pulse Ox 98.1 F 84 16 139/81 100 03/21/19 08:00 03/21/19 08:00 03/21/19 23:17 03/21/19 08:00 03/21/19 08:00 Merits Inpatient Hospitalization: No Clear for Discharge: Adequate Clinical Respons Discharge Planning - Discharge Planning Discharge Plan: Outpatient Follow Up Outpatient Program: Private Clinician(s) Recommendations for Continuing Care: Medication Management Medications: Current Medications Acetaminophen (Tylenol Tab*) 650 mg PO Q4H PRN PRN Reason: PAIN; OR TEMP > 101 Al Hydrox/Mg Hydrox/Simethicone (Maalox Plus*) 30 ml PO Q4H PRN PRN Reason: INDIGESTION Divalproex Sodium (Depakote Dr Tab(*)) 1,000 mg PO 1900 [facility] Last Admin: 03/21/19 20:06 Dose: 1,000 mg Lorazepam (Ativan Tab(*)) 1 mg PO Q6H PRN PRN Reason: ANXIETY Multivitamins/Minerals (Theragran/Minerals Tab*) 1 tab PO DAILY [facility] Last Admin: 03/21/19 13:51 Dose: Not Given Quetiapine Fumarate (Seroquel Xr Tab*) 300 mg PO 1900 [facility] Last Admin: 03/21/19 20:06 Dose: 300 mg Discharge Planning: Prescriptions provided for discharge [x] Yes [] No Follow up care details as per social work arrangements. Patient response to discharge plan: [] eager for discharge [x] agreeable with discharge plan [] ambivalent about discharge [] disagrees with discharge today
[2019-03-22] MEDS: Multivitamins/Minerals TAB PO SCH (09:42)
== END 2019-03-22 14:50 | disposition home or self-care (01) | DRG 885 ==
LOC: ED 22:35 → BSU 03-13 02:00
PROVIDERS: ADMIT Psychiatry & Neurology Psychiatry; ATTEND Psychiatry & Neurology Psychiatry
DX: F31.5 Bipolar disorder, current episode depressed, severe, with psychotic features (principal); Z81.8 Family history of other mental and behavioral disorders; Z79.899 Other long term (current) drug therapy
CPT/HCPCS: 36415; 80053; 80061; 80164; 80320; 80329; 83036; 84443; 85025; 99222; 99232; 99233; 99238; 99285; A9270-GY; G0480

== ENCOUNTER 2022-10-23 13:00 | Inpatient (IN) ==
[2022-10-23 15:18] LABS: ABS Lymphocytes 1.4 10^3/ul (1.0-4.8); ABS Monocytes 0.4 10^3/ul (0-0.8); ABS Neutrophils 6.9 10^3/ul (1.5-7.7); Eosinophil % 0.5 %; Hematocrit 42 % (42-52); Hemoglobin 14.3 g/dL (14.0-18.0); Lymphocyte % 16.2 %; Mean Corpuscular Hemoglobin 31 pg (27-31); Mean Corpuscular Hgb Conc 34 g/dL (31-36); Mean Corpuscular Volume 92 fL (80-94); Mean Platelet Volume 7.2 fL (7.4-10.4); Platelet Count 407 10^3/uL (150-450); Red Blood Count 4.61 10^6 /uL (4.18-5.48); Red Cell Distribution Width 14 % (10-15); White Blood Count 8.8 10^3/uL (3.5-10.8)
[2022-10-23 16:03] LABS: TSH Ultra Thyroid Stim Horm 1.82 mcIU/mL (0.34-5.60)
[2022-10-23 16:16] LABS: ALT 10 U/L (7-52); AST 14 U/L (13-39); Acetaminophen < 15 mcg/mL; Albumin 4.7 g/dL (3.2-5.2); Albumin/Globulin Ratio 1.9 (1-3); Alcohol, S < 13 mg/dL (<13); Alkaline Phosphatase 61 U/L (35-149); Anion Gap 7 mmol/L (2-11); Blood Urea Nitrogen 17 mg/dL (6-24); CO2 Carbon Dioxide 28 mmol/L (22-32); Calcium 9.4 mg/dL (8.6-10.3); Chloride 104 mmol/L (101-111); Creatinine, Serum 1.16 mg/dL (0.67-1.17); Globulin 2.5 g/dL (2-4); Glucose 93 mg/dL (70-100); Potassium 4.2 mmol/L (3.5-5.0); Salicylate < 2.50 mg/dL (<30); Sodium 139 mmol/L (135-145); Total Protein 7.2 g/dL (6.4-8.9); eGFR CKD-EPI 88.5 (>60)
[2022-10-23] MEDS ORDERED: Al Hydrox/Mg Hydrox/Simet LIQ 30 ML UDC PO PRN (17:18)
[2022-10-24] MEDS: Vitamin THERAPEUTIC TAB PO SCH (09:07)
[2022-10-24] MEDS: Nicotine GUM 2MG FRUIT FLAVOR PO PRN (10:04)
[2022-10-25] MEDS: Vitamin THERAPEUTIC TAB PO SCH (09:07)
[2022-10-26] MEDS: Vitamin THERAPEUTIC TAB PO SCH (08:20)
[2022-10-27] MEDS: Vitamin THERAPEUTIC TAB PO SCH (08:06)
[2022-10-28] MEDS: Vitamin THERAPEUTIC TAB PO SCH (09:15)
[2022-10-29] MEDS: Vitamin THERAPEUTIC TAB PO SCH (11:35)
[2022-10-30] MEDS: Vitamin THERAPEUTIC TAB PO SCH (09:31)
[2022-10-31] MEDS: Vitamin THERAPEUTIC TAB PO SCH (09:52)
[2022-11-01] MEDS: Vitamin THERAPEUTIC TAB PO SCH (10:24)
[2022-11-01] MEDS ORDERED: OLANZapine IM (NF) 10 MG VIAL IM PRN (13:53)
[2022-11-01] MEDS ORDERED: Paliperidone SUSTENNA 234 MG/1.5 ML IM ONE (14:30)
[2022-11-02] MEDS: Vitamin THERAPEUTIC TAB PO SCH (07:45)
[2022-11-03] MEDS: Vitamin THERAPEUTIC TAB PO SCH (10:11)
[2022-11-04] MEDS: Vitamin THERAPEUTIC TAB PO SCH (09:33)
[2022-11-04] MEDS ORDERED: Paliperidone SUSTENNA 156 MG/1 ML IM ONE (10:30)
[2022-11-08] MEDS: Lithium Carbonate ER 450mg TAB PO SCH (20:20)
[2022-11-09] MEDS: Lithium Carbonate ER 450mg TAB PO SCH ×2 (09:20→20:05)
[2022-11-10] MEDS: Lithium Carbonate ER 450mg TAB PO SCH ×2 (09:13→20:53)
[2022-11-11] MEDS: Lithium Carbonate ER 450mg TAB PO SCH ×2 (09:44→21:45)
[2022-11-12] MEDS: Lithium Carbonate ER 450mg TAB PO SCH ×2 (08:53→21:09)
[2022-11-12] MEDS ORDERED: OLANZapine 10 mg TAB*ODT ONE ×2 (12:47→19:00)
[2022-11-12] MEDS: Nicotine GUM 2MG FRUIT FLAVOR PO PRN (12:51)
[2022-11-13] MEDS: Lithium Carbonate ER 450mg TAB PO SCH (09:59)
[2022-11-13 10:01] LABS: Albumin 4.6 g/dL (3.2-5.2); Albumin/Globulin Ratio 1.7 (1-3); Calcium 9.6 mg/dL (8.6-10.3); Creatinine, Serum 0.97 mg/dL (0.67-1.17); Globulin 2.7 g/dL (2-4); HDL Cholesterol 67.7 mg/dL; Lithium 0.55 mmol/L (0.6-1.2); Potassium 4.6 mmol/L (3.5-5.0); Total Bilirubin 0.5 mg/dL (0.2-1.0); Total Protein 7.3 g/dL (6.4-8.9); eGFR CKD-EPI 109.7 (>60)
[2022-11-13] MEDS ORDERED: Lithium Carbonate ER 450mg TAB PO SCH (21:00)
[2022-11-25 11:50] LABS: Albumin 4.4 g/dL (3.2-5.2); Albumin/Globulin Ratio 1.8 (1-3); Calcium 9.3 mg/dL (8.6-10.3); Creatinine, Serum 0.83 mg/dL (0.67-1.17); Globulin 2.4 g/dL (2-4); Potassium 4.4 mmol/L (3.5-5.0); Total Bilirubin 0.6 mg/dL (0.2-1.0); Total Protein 6.8 g/dL (6.4-8.9)
[2022-11-25] MEDS: Lithium Carb ER 300 mg TAB(NF) PO SCH (20:09)
[2022-11-26] MEDS ORDERED: Paliperidone SUSTENNA 234 MG/1.5 ML IM ONE (07:25)
[2022-11-26] MEDS: Lithium Carb ER 300 mg TAB(NF) PO SCH ×2 (09:08→20:10)
[2022-11-27] MEDS: Lithium Carb ER 300 mg TAB(NF) PO SCH ×2 (08:13→19:59)
[2022-11-28] MEDS: Lithium Carb ER 300 mg TAB(NF) PO SCH ×2 (08:40→19:44)
[2022-11-29] MEDS: Lithium Carb ER 300 mg TAB(NF) PO SCH ×2 (08:14→19:35)
[2022-11-29 08:58] LABS: Albumin 4.1 g/dL (3.2-5.2); Albumin/Globulin Ratio 1.6 (1-3); Calcium 8.9 mg/dL (8.6-10.3); Creatinine, Serum 0.9 mg/dL (0.67-1.17); Globulin 2.6 g/dL (2-4); Lithium 1.22 mmol/L (0.6-1.2); Potassium 4.3 mmol/L (3.5-5.0); Total Bilirubin 0.7 mg/dL (0.2-1.0); Total Protein 6.7 g/dL (6.4-8.9)
[2022-11-30] MEDS: Lithium Carb ER 300 mg TAB(NF) PO SCH ×2 (09:04→19:33)
[2022-12-01] MEDS: Lithium Carb ER 300 mg TAB(NF) PO SCH ×2 (08:45→19:33)
[2022-12-02] MEDS: Lithium Carb ER 300 mg TAB(NF) PO SCH ×2 (08:22→19:37)
[2022-12-02 09:30] VITALS: BP 122/72
[2022-12-03] MEDS: Lithium Carb ER 300 mg TAB(NF) PO SCH ×2 (07:57→20:51)
[2022-12-04] MEDS: Lithium Carb ER 300 mg TAB(NF) PO SCH (07:59)
== END 2022-12-04 09:25 | DRG 753 ==
LOC: ED 13:00 → EDHOLD 16:47 → BSU 18:37
PROVIDERS: ADMIT Student in an Organized Health Care Education/Training Program; ATTEND Psychiatry & Neurology Psychiatry